=== PATIENT | female | born 1985 | race Hispanic/Latino ===

== ENCOUNTER → 2017-09-09 | Outpatient (CLI) | payer SELFPAY ==
[~2017-09-09] MED LIST: CATHETER FLUSH 10 ML SYR IV PRN; IOHEXOL 350 MG/ML 100 ML (OMNIPAQUE 350) VIAL IV ONE; NS 100 ML (IVPB) BAG IV ONE; PREN1TAB19 PO; PREN1TAB39 PO
--- NOTE | 2017-09-09 12:15 | Diagnostic Imaging Report ---
PROCEDURE: CT sinuses without contrast TECHNIQUE: Multiple contiguous axial images were obtained through the sinuses without the use of intravenous contrast. Coronal and sagittal reformations were then performed. INDICATION: Throat pain. Ear pain. Sore throat. FINDINGS: There is a well-defined lesion with osseous margins seen measuring 1.3 cm in size that appears to project into the inferior aspect of the right maxillary sinus and is closely related to the root and upper right molar tooth. The exact etiology is uncertain. Dental related pathology such as odontogenic keratocyst is possible. There is otherwise no significant opacification in the maxillary sinuses, sphenoidal sinuses, or frontal sinuses seen. The ethmoidal air cells appear clear. The mastoid air cells appear clear. The middle ear cavities are clear. The nasal cavity demonstrate no mass. There is minimal mucosal thickening along the inferior turbinates with no narrowing of the nasal passages. IMPRESSION: A 1.3 cm well-defined lesion surrounded by a thin layer of bone projects into the right maxillary sinus and appears to originate near the root of an upper right molar tooth which is probably a dental related lesion such as odontogenic keratocyst. No significant sinonasal disease otherwise. Dictated by: Dictated on workstation # [id number]
--- NOTE | 2017-09-09 15:40 | Diagnostic Imaging Report ---
PROCEDURE: CT neck soft tissue with contrast. TECHNIQUE: Multiple contiguous axial images were obtained through the neck after the administration of contrast. INDICATION: Sore throat. Throat pain. Ear pain. CONTRAST: 75 mL of Omnipaque 350 was administered intravenously. FINDINGS: The mucosal pharyngeal space appears symmetric with no abnormality identified. The thyroid, submandibular, and parotid glands appear unremarkable. The carotid arteries and jugular veins demonstrate good opacification. There is no significantly enlarged cervical chain lymph node. A 1.3 cm hypodense lesion with circumscribed margins with a thin bony lining and no aggressive features is seen projecting into the lower aspect of the right maxillary sinus and appears to be originating from the area of the root of an upper right molar tooth. The lung apices appear clear. The osseous structures demonstrate no significant abnormality. IMPRESSION: A 1.3 cm hypodense lesion projecting into the lower aspect of the right maxillary sinus is favored to be arising and related to the root of an upper right molar tooth, such as an odontogenic keratocyst. Dictated by: Dictated on workstation # [id number]
== END ==
LOC: RAD 09:52
PROVIDERS: ATTEND Otolaryngology Otolaryngology/Facial Plastic Surgery
DX: J32.0 Chronic maxillary sinusitis (principal); R07.0 Pain in throat; J02.9 Acute pharyngitis, unspecified; H92.09 Otalgia, unspecified ear
CPT/HCPCS: 70486; 70491